=== PATIENT | female | born 1970 | race Caucasian/White ===

== ENCOUNTER 2016-12-17 08:21 | Day surgery (SDC) | payer OTHER ==
[2016-12-14 12:00] VITALS: BP 111/74
[~2016-12-17] VITALS: Ht 170.2 cm; Wt 90.9 kg
[~2016-12-17 08:21] MED LIST: BIOTIN; BUPIVACAINE/PF 0.25% ONE; HEART BURN MED; MULT-516 PO
[2016-12-17] MEDS ORDERED: LACTATED RINGERS 1,000 ML IV SCH (09:29)
[2016-12-17 09:30] LABS: HCG UR LOT HCG7030192
[2016-12-17 09:31] VITALS: BP 111/74
[2016-12-17 09:37] LABS: HCG UR OBC PASS
[2016-12-17] MEDS ORDERED: PROPOFOL 10 MG/ML, 20ML ONE (10:11)
[2016-12-17] MEDS ORDERED: CEFAZOLIN 1,000 MG ONE (10:11)
[2016-12-17] MEDS ORDERED: ONDANSETRON 2MG/ML, 2ML ONE (10:11)
[2016-12-17] MEDS ORDERED: FENTANYL PF 250 MCG/5ML ONE (10:11)
[2016-12-17] MEDS ORDERED: DEXAMETHASONE 4 MG/ML, 1ML ONE (10:11)
[2016-12-17] MEDS ORDERED: SUCCINYLCHOLINE 20 MG/ML, 10ML ONE (10:11)
[2016-12-17] MEDS ORDERED: GLYCOPYRROLATE 0.2MG/1ML, 5ML ONE (10:11)
[2016-12-17] MEDS ORDERED: ROCURONIUM 10 MG/ML ONE (10:11)
[2016-12-17] MEDS ORDERED: NEOSTIGMINE 1 MG/ML, 10ML ONE (10:11)
[2016-12-17] MEDS ORDERED: MIDAZOLAM 1 MG/ML, 2ML ONE (10:11)
[2016-12-17] MEDS ORDERED: SCOPOLAMINE PATCH, 1MG PATCH.TD72 TD ONE ×2 (11:40)
[2016-12-17] MEDS ORDERED: ACETAMINOPHEN 325 MG TABLET PO PRN (12:30)
[2016-12-17] MEDS ORDERED: PROMETHAZINE 25 MG/ML, 1ML IV PRN (12:30)
[2016-12-17] MEDS ORDERED: MEPERIDINE/PF 25MG/0.5ML IVPush PRN (12:30)
[2016-12-17] MEDS ORDERED: OXYcodone 5 MG/5 ML ORAL.SOL UDC PO PRN (12:30)
[2016-12-17] MEDS ORDERED: ALBUTEROL SULFATE 2.5 MG/3 ML NPPB PRN (12:30)
[2016-12-17] MEDS ORDERED: METOPROLOL 1 MG/ML, 5ML IV PRN (12:30)
[2016-12-17] MEDS ORDERED: hydrALAzine 20 MG/ML, 1ML IV PRN (12:30)
[2016-12-17] MEDS ORDERED: MIDAZOLAM 1 MG/ML, 2ML IV PRN (12:30)
[2016-12-17] MEDS ORDERED: FENTANYL PF 100 MCG/2ML IV PRN (12:30)
[2016-12-17] MEDS ORDERED: EPINEPHRINE 1 MG/ML, 1ML ONE (12:52)
[2016-12-17] MEDS ORDERED: BUPIVACAINE/PF 0.25% ONE (12:52)
[2016-12-17] MEDS ORDERED: NEOMY/POLYMYXIN B GU IRR. 1 ML IRRIG ONE (12:53)
[2016-12-17] MEDS ORDERED: FENTANYL PF 100 MCG/2ML ONE ×2 (13:03→13:37)
[2016-12-17] MEDS ORDERED: HYDROmorphone 1 MG/ML, 1ML ONE (13:37)
[2016-12-17] MEDS ORDERED: ACETAMINOPHEN 650 MG/20.3 ML UDC ONE (13:37)
[2016-12-17] MEDS ORDERED: OXYcodone 5 MG/5 ML ORAL.SOL UDC ONE (13:37)
[2016-12-17] MEDS: HYDROmorphone 1 MG/ML, 1ML IV PRN ×2 (13:41→14:00)
== END 2016-12-17 17:10 | disposition home or self-care (01) ==
LOC: OUT 08:21
PROVIDERS: ATTEND Obstetrics & Gynecology Female Pelvic Medicine and Reconstructive Surgery
DX: N84.0 Polyp of corpus uteri (principal); N94.6 Dysmenorrhea, unspecified; Z98.890 Other specified postprocedural states
CPT/HCPCS: 58552; 81025; 88307; J0171; J0690; J1100; J1170; J2250; J2405; J2704; J2710; J3010; J3490; J7120; J0330